=== PATIENT | female | born 1980 | race Asian ===

== ENCOUNTER 2016-11-06 20:05 | Emergency (ER) | payer OTHER ==
[~2016-11-06] VITALS: Ht 154.9 cm; Wt 54.4 kg
[2016-11-06] MEDS ORDERED: FLUT30CR5 TP (20:53)
[2016-11-06] MEDS ORDERED: DIPH25CA58 PO (20:53)
[2016-11-06] MEDS ORDERED: PRED20TA PO (20:53)
--- NOTE | 2016-11-06 20:54 | PHYS DOC ---
Past History Past Medical History: Other Past Surgical History: No Surgical History Alcohol Use: None Drug Use: None Adult General Chief Complaint Chief Complaint: SKIN RASH/ABSCESS [facility] HPI This is a pleasant 36-year-old female with a history of exposure to poison manuel presents with localized redness irritation to her face that began earlier today. Patient was [place] [facility] [place] her family. She has had prior issues with contact dermatitis and poison manuel in the past this is no different. She denies any changes in vision, problem swallowing, problems with anterior neck pain or difficulty breathing. Patient denies any fevers, chills or other symptoms. She was seen at an urgent care earlier today with a septic and offer her to treatment she was by 7 weeks. she is actively breast-feeding and she wants to ensure that the medication she'll be using today will be safe while she is breast-feeding. she denies any other symptoms. denies any history of sexual transmitted diseases, fevers, chills or other systemic complaints. Review of Systems Review of Systems Constitutional: Denies fever or chills [] Eyes: Denies change in visual acuity, redness, or eye pain [] HENT: Denies nasal congestion or sore throat [] Respiratory: Denies cough or shortness of breath [] Cardiovascular: No additional information not addressed in HPI [] GI: Denies abdominal pain, nausea, vomiting, bloody stools or diarrhea [] : Denies dysuria or hematuria [] Musculoskeletal: Denies back pain or joint pain [] Integument: sHe complains only of an rash on her face that began today. Neurologic: Denies headache, focal weakness or sensory changes [] Endocrine: Denies polyuria or polydipsia [] Physical Exam Physical Exam Constitutional: Well developed, well nourished, no acute distress, non-toxic appearance. [] HENT: Normocephalic, atraumatic,oropharynx moist, Eyes: PERRLA, EOMI, conjunctiva normal, no discharge. [] Neck: Normal range of motion, no tenderness, supple, no stridor. [] Cardiovascular:Heart rate regular rhythm, no murmur [] Lungs & Thorax: Bilateral breath sounds clear to auscultation Skin: She demonstrates a small contact dermatitis over the much of the inferior portion of the cheek zygoma and neck. There are no evidence of cellulitis,. Neurologic: Alert and oriented X 3, normal motor function, normal sensory function, no focal deficits noted. [] Psychologic: Affect normal, judgement normal, mood normal. [] Current Patient Data Vital Signs Vital Signs Date Time Temp Pulse Resp B/P (MAP) Pulse Ox O2 Delivery O2 Flow Rate FiO2 11/06/16 20:15 97.5 60 20 99 EKG EKG [] Radiology/Procedures Radiology/Procedures [] Course & Med Decision Making Course & Med Decision Making Pertinent Labs and Imaging studies reviewed. (See chart for details) reviewed nursing notes, vital signs and is in physical findings. Patient clearly has a contact dermatitis not compromising her airway. She'll be given supportive medications and follow-up with her primary care doctor. She has been assured that the medication provided today are relatively safe for breast-feeding. There are some precaution she needs to use with pumping and dumping of the breast milk secondary to possible sedation especially using Benadryl. Impression: Contact dermatitis. Disposition: PCP follow-up given supportive medications of fluticasone, Benadryl , and prednisone. [] Dragon Disclaimer Dragon Disclaimer This chart was dictated in whole or in part using Voice Recognition software in a busy, high-work load, and often noisy Emergency Department environment. It may contain unintended and wholly unrecognized errors or omissions. Departure Departure: Impression: Primary Impression: Contact dermatitis Disposition: 01 HOME, SELF-CARE Condition: STABLE Referrals: PCP,NO (PCP) Patient Instructions: Contact Dermatitis Additional Instructions: Please return for any questions or concerns or might have please return immediately if you have any problems breathing or swallowing secondary to a reaction to this contact dermatitis. This follow-up your primary care doctor for routine care. Scripts Prednisone (PREDNISONE) 20 Mg Tablet 3 TAB PO DAILY for 5 Days, #15 TAB Prov: WANG AN MD 11/06/16 Fluticasone Propionate (CUTIVATE) 30 Gm Cream..g. 1 MAURA TP BID, #60 GM 1 Refill Prov: WANG AN MD 11/06/16 Diphenhydramine Hcl (BENADRYL) 25 Mg Capsule 25 MG PO QID for 7 Days, #28 CAP Prov: WANG AN MD 11/06/16 WANG AN MD Nov 06, 2016 20:54
[2016-11-06 21:01] VITALS: BP 136/75
== END 2016-11-06 21:00 | disposition home or self-care (01) ==
LOC: ER 20:05
DX: L25.9 Unspecified contact dermatitis, unspecified cause (principal)
CPT/HCPCS: 99283